=== PATIENT | male | born 2000 | race African-American/Black ===

== ENCOUNTER 2021-02-20 08:31 | Emergency (ER) | payer OTHER ==
[2021-02-20 09:23] VITALS: BP 109/71; PULSE 92; TEMP 98.3; BMI 29.0
== END 2021-02-20 11:30 | disposition home or self-care (01) ==
LOC: JER 08:31
DX: J06.9 Acute upper respiratory infection, unspecified (principal); R05.9 Cough, unspecified; R09.81 Nasal congestion
CPT/HCPCS: 87804; 99284-25; C9803; U0003; U0005

== ENCOUNTER 2021-05-03 12:41 | Emergency (ER) | payer OTHER ==
[2021-05-03 13:06] VITALS: BP 118/70; PULSE 82; TEMP 97.8; BMI 29.8
== END 2021-05-03 14:16 | disposition home or self-care (01) ==
LOC: JERFT 12:41
DX: S61.215A Laceration without foreign body of left ring finger without damage to nail, initial encounter (principal)
CPT/HCPCS: 99283-25